=== PATIENT | male | born 1960 | race Two or more races ===

== ENCOUNTER 2017-03-23 13:26 | Day surgery (SDC) | payer BC, OTHER ==
[~2017-03-23] VITALS: Ht 185.4 cm; Wt 172.4 kg
[~2017-03-23 13:26] MED LIST: LR 1,000 ML IV ONE; NO MEDICATIONS
[2017-03-23] MEDS ORDERED: LIDOCAINE 2% INJ 100 MG/5 ML SDV (FOR ANES.) As Ordered ONE (14:25)
[2017-03-23] MEDS ORDERED: PROPOFOL 200 MG/20 ML VIAL As Ordered ONE ×3 (14:25→15:00)
--- NOTE | 2017-03-23 15:31 | ROOR ---
Patient Name: Kwesi Abdi Procedure Date: 03/23/2017 2:32 PM Date of : 1960 Age: 56 Room: [facility] Gender: Male Note Status: Finalized Procedure: Colonoscopy Indications: High risk colon cancer surveillance: Personal history of non-advanced adenoma, Last colonoscopy: 2009 Providers: Asif Alberts MD Referring MD: Melecio Spence MD Requesting Provider: Medicines: Monitored Anesthesia Care Complications: No immediate complications. Procedure: Pre-Anesthesia Assessment: - Prior to the procedure, a History and Physical was performed, and patient medications and allergies were reviewed. The patient is competent. The risks and benefits of the procedure and the sedation options and risks were discussed with the patient. All questions were answered and informed consent was obtained. Patient identification and proposed procedure were verified by the physician, the nurse and the electrical electronics technician in the procedure room. Mental Status Examination: alert and oriented. Airway Examination: normal oropharyngeal airway and neck mobility. CV Examination: regular rate and rhythm. Prophylactic Antibiotics: The patient does not require prophylactic antibiotics. Prior Anticoagulants: The patient has taken no previous anticoagulant or antiplatelet agents. ASA Grade Assessment: III - A patient with severe systemic disease. After reviewing the risks and benefits, the patient was deemed in satisfactory condition to undergo the procedure. The anesthesia plan was to use monitored anesthesia care (MAC). Immediately prior to administration of medications, the patient was re-assessed for adequacy to receive sedatives. The heart rate, respiratory rate, oxygen saturations, blood pressure, adequacy of pulmonary ventilation, and response to care were monitored throughout the procedure. The physical status of the patient was re-assessed after the procedure. The Colonoscope was introduced through the anus and advanced to the cecum, identified by appendiceal orifice and ileocecal valve. The colonoscopy was somewhat difficult due to a tortuous colon. The patient tolerated the procedure well. The quality of the bowel preparation was good. Findings: The perianal and digital rectal examinations were normal. A 20 mm polyp was found in the distal ascending colon. The polyp was flat. This appeared as a faintly raised area running around a haustral fold. Biopsies were taken with a cold forceps for histology. Estimated blood loss was minimal. The pathology specimen was placed into Bottle Number 1. A 3 mm polyp was found in the hepatic flexure. The polyp was sessile. The polyp was removed with a jumbo cold forceps. Resection and retrieval were complete. The pathology specimen was placed into Bottle Number 2. A 12 mm polyp was found at 50 cm proximal to the anus. The polyp was sessile. This was difficult to see fully as it lay at the point of a turn in the colon. The polyp was removed with a hot snare. Polyp resection was felt to be incomplete. The resected tissue was retrieved. Impression: - One 20 mm polyp in the distal ascending colon. Biopsied. - One 3 mm polyp at the hepatic flexure, removed with a jumbo cold forceps. Resected and retrieved. - One 12 mm polyp at 50 cm proximal to the anus, removed with a hot snare. Incomplete resection. Resected tissue retrieved. Recommendation: - Await pathology results. - Discharge patient to home. - Resume previous diet. - Continue present medications. - Telephone endoscopist for pathology results in 1 week. Asif Alberts MD 03/23/2017 3:30:37 PM Number of Addenda: 0 Note Initiated On: 03/23/2017 2:32 PM Estimated Blood Loss: Estimated blood loss was minimal.
[2017-03-23 15:50] VITALS: BP 130/73
== END 2017-03-23 15:55 | disposition home or self-care (01) ==
LOC: M OPP 13:26
PROVIDERS: ATTEND Surgery
DX: Z12.11 Encounter for screening for malignant neoplasm of colon (principal); D12.2 Benign neoplasm of ascending colon; D12.3 Benign neoplasm of transverse colon; Z86.010 Personal history of colon polyps; Z87.891 Personal history of nicotine dependence

== ENCOUNTER 2018-07-26 12:02 | Day surgery (SDC) | payer BC, OTHER ==
[~2018-07-26] VITALS: Ht 185.4 cm; Wt 169.6 kg
[~2018-07-26 12:02] MED LIST changes: -LR 1,000 ML IV ONE; +NS 1,000 ML IV ONE
[2018-07-26] MEDS ORDERED: LIDOCAINE 2% INJ 100 MG/5 ML SDV (FOR ANES.) As Ordered ONE (13:43)
[2018-07-26] MEDS ORDERED: PROPOFOL 200 MG/20 ML VIAL As Ordered ONE ×4 (13:43→14:45)
--- NOTE | 2018-07-26 14:45 | ROOR ---
Patient Name: Kwesi Abdi Procedure Date: 07/26/2018 1:35 PM Date of : 1960 Age: 58 Room: [facility] Gender: Male Note Status: Finalized Procedure: Colonoscopy Indications: Therapeutic procedure for colon polyps. In Mar 2017 patient was found to have two polyps which were biopsied but did not seem to have been completely destroyed. Providers: Asif Alberts MD Referring MD: Melecio Spence MD Requesting Provider: Medicines: Monitored Anesthesia Care Complications: No immediate complications. Procedure: Pre-Anesthesia Assessment: - Prior to the procedure, a History and Physical was performed, and patient medications and allergies were reviewed. The patient is competent. The risks and benefits of the procedure and the sedation options and risks were discussed with the patient. All questions were answered and informed consent was obtained. Patient identification and proposed procedure were verified by the physician, the nurse and the anesthesiologist in the procedure room. Mental Status Examination: alert and oriented. CV Examination: regular rate and rhythm. Prophylactic Antibiotics: The patient does not require prophylactic antibiotics. Prior Anticoagulants: The patient has taken no previous anticoagulant or antiplatelet agents. ASA Grade Assessment: III - A patient with severe systemic disease. After reviewing the risks and benefits, the patient was deemed in satisfactory condition to undergo the procedure. The anesthesia plan was to use monitored anesthesia care (MAC). Immediately prior to administration of medications, the patient was re-assessed for adequacy to receive sedatives. The heart rate, respiratory rate, oxygen saturations, blood pressure, adequacy of pulmonary ventilation, and response to care were monitored throughout the procedure. The physical status of the patient was re-assessed after the procedure. The Colonoscope was introduced through the anus and advanced to the cecum, identified by appendiceal orifice and ileocecal valve. The colonoscopy was performed without difficulty. The patient tolerated the procedure well. The quality of the bowel preparation was good. Findings: The perianal and digital rectal examinations were normal. A 12 mm polyp was found in the proximal ascending colon. This appeared to be the lesion identified in Mar 2017. The polyp was sessile. This was biopsied with a hot forceps for histology. Fulguration to ablate the lesion remnants by hot biopsy forceps was successful. Estimated blood loss: none. The exam was otherwise without abnormality. The polyp seen previously at 50cm was not identified. Impression: - One 12 mm polyp in the proximal ascending colon. Biopsied. Treated with hot biopsy forceps. - The examination was otherwise normal. Recommendation: - Discharge patient to home. - Resume previous diet. - Continue present medications. - Await pathology results. - Repeat colonoscopy in 3 years for surveillance. Asif Alberts MD Asif Alberts MD 07/26/2018 2:45:04 PM Electronically signed by Asif Alberts MD Number of Addenda: 0 Note Initiated On: 07/26/2018 1:35 PM Estimated Blood Loss: Estimated blood loss: none.
[2018-07-26 15:03] VITALS: BP 157/93
== END 2018-07-26 15:05 | disposition home or self-care (01) ==
LOC: M OPP 12:02
PROVIDERS: ATTEND Surgery
DX: D12.2 Benign neoplasm of ascending colon (principal); K63.5 Polyp of colon

== ENCOUNTER → 2020-05-28 | Outpatient (REF) | payer OTHER ==
[~2020-05-28] MED LIST changes: -NS 1,000 ML IV ONE
== END ==
LOC: M SFHCPLAZ 09:55
PROVIDERS: ATTEND Family Medicine
DX: Z13.1 Encounter for screening for diabetes mellitus (principal); E78.00 Pure hypercholesterolemia, unspecified

== ENCOUNTER → 2020-06-13 | Outpatient (CLI) | payer BC, OTHER ==
--- NOTE | 2020-06-13 11:44 | REP ---
INDICATION: LUNG SCREENING. COMPARISON: None. TECHNIQUE: Low-dose lung CT screening protocol with 3 mm slice thickness lung windows presented for review. FINDINGS: Lung darnell are well inflated. There is no pleural effusion. I see no focal pleural plaque, calcific plaque, acute infiltrate or parenchymal mass. No pulmonary nodules are identified. The cardiac silhouette is not grossly enlarged. No gross aneurysm of the aorta. Some degenerative changes in the lower thoracic spine but no acute bony finding noted IMPRESSION: 1. Lung RADS category 1 negative-examination. No evidence of malignancy. Patients with this category of examination have less than 1% chance of malignancy at the time of the examination. For patients with high risk of lung malignancy, follow-up annual low-dose screening CT recommended. <Electronically signed by Hood Hope > 06/13/20 [id number]
== END ==
LOC: M RAD 10:39
PROVIDERS: ATTEND Family Medicine
DX: Z12.2 Encounter for screening for malignant neoplasm of respiratory organs (principal)

== ENCOUNTER → 2020-06-18 | Outpatient (CLI) | payer BC, OTHER ==
[2020-06-18 18:12] LABS: HEMOGLOBIN A1c 5.8 %
== END ==
LOC: M WUC 10:51
PROVIDERS: ATTEND Family Medicine
DX: E78.00 Pure hypercholesterolemia, unspecified (principal); Z13.1 Encounter for screening for diabetes mellitus

== ENCOUNTER → 2020-06-19 | Outpatient (REF) | payer OTHER ==
[2020-06-19 13:31] LABS: CHOLESTEROL RISK RATIO 3.083 (<5)
== END ==
LOC: M WUC 12:09
PROVIDERS: ATTEND Family Medicine
DX: E78.00 Pure hypercholesterolemia, unspecified (principal); Z13.1 Encounter for screening for diabetes mellitus

== ENCOUNTER → 2020-06-25 | Outpatient (REF) | payer OTHER | LOC: M SFHCPLAZ 14:13 | PROVIDERS: ATTEND Family Medicine | DX: E78.00 Pure hypercholesterolemia, unspecified (principal) ==

== ENCOUNTER → 2020-06-26 | Outpatient (CLI) | payer OTHER ==
[2020-06-26 13:31] LABS: ALBUMIN 3.9 GM/DL (3.2-5.2); BILIRUBIN,DIRECT 0.1 MG/DL (0.0-0.2); BILIRUBIN,TOTAL 0.3 MG/DL (0.2-1.0); TOTAL PROTEIN 7.2 GM/DL (6.4-8.2)
== END ==
LOC: M WUC 09:50
PROVIDERS: ATTEND Family Medicine
DX: E78.00 Pure hypercholesterolemia, unspecified (principal)